=== PATIENT | male | born 1975 | race Caucasian/White ===

== ENCOUNTER 2020-09-13 08:39 | Emergency (ER) | payer OTHER, SELFPAY ==
--- NOTE | ~2020-09-13 | US_ITS ---
US venous doppler UE LT DATE: 09/13/2020 10:03 INDICATION: Left upper extremity swelling TECHNIQUE: Real-time and color flow imaging and Doppler analysis of the veins of the left upper extre mity COMPARISON: None FINDINGS: There is thrombus and lack of compression involving the left basilic vein. Flow is demonstrated in the left internal jugular, subclavian, axillary, brachial, cephalic, radial a nd ulnar veins. IMPRESSION: Intraluminal thrombus within left basilic vein Reviewed, dictated and finalized at [facility]. Reviewed, dictated and finalized at [facility]. [employer]
[2020-09-13 08:48] VITALS: BP 162/99; PULSE 78; RESP 16; TEMP 36.9; O2SAT 98
--- NOTE | 2020-09-13 09:33 | ED.GENADULT ---
HPI - General Adult General Chief complaint: Unspecified Stated complaint: site of old IV possible infection Time Seen by Provider: 09/13/20 09:32 History of Present Illness HPI narrative: Patient is a 45-year-old male who presents ER with left forearm pain. Patient had an IV placed last week since then has developed discomfort to left forearm that then started to radiate up past his elbow. He has some streaking and firmness to the area. No chest pain or shortness of breath. Concerned about blood clots. Pain is worse with movement of the arm. Patient had his left iliac vein stented for chronic swelling in his left leg. Related Data Home Medications Medication Instructions Recorded Confirmed clopidogrel [Plavix] 75 mg PO DAILY 09/13/20 fluoxetine 10 mg PO BID 09/13/20 Allergies Allergy/AdvReac Type Severity Reaction Status Date / Time No Known Allergies Allergy Verified 09/13/20 09:23 Review of Systems Constitutional: Constitutional: Denies chills, Denies fever(s) and Denies weakness Cardiovascular: Cardiovascular: Denies chest pain and Denies chest pain at rest Respiratory: Respiratory: Denies cough and Denies dyspnea Musculoskeletal: Comments: left forearm pain/swelling Integumentary/Breasts: Skin/Breast: Reports erythema PMFSH Past Medical History Medical History (Updated 09/13/20 @ 15:30 by Amauri Charlton MD) DVT (deep venous thrombosis) Surgical History Surgical History (Updated 09/13/20 @ 15:24 by Amauri Charlton MD) Iliac vein stenosis, 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 HEAD: Normocephalic, atraumatic. CHEST: Clear to auscultation. No respiratory distress. HEART: Regular rate and rhythm. Normal peripheral pulses. EXTREMITIES: Normal range of motion. Mild edema left forearm where there is some tenderness and superficial redness tracking around the forearm to the medial epicondyle. NEURO: Alert and oriented x3. PSYCH: Normal mood and affect. Course Reevaluation(s) Reevaluation #1: Likely thrombophlebitis. Ultrasound pending. Date: 09/13/20 Time: 10:46 Reevaluation #2: Multiple attempts to contact patient's vascular surgeon that were unsuccessful. Discussed with patient's PCPs office x2. Recommendations placed patient on Eliquis 2.5 mg twice daily and have him follow-up in clinic. Date: 09/13/20 Time: 15:25 Vital Signs Vital signs: Vital Signs Temperature 98.4 F 09/13/20 08:48 Pulse Rate 78 09/13/20 08:48 Respiratory Rate 16 09/13/20 08:48 Blood Pressure 162/99 H 09/13/20 08:48 Pulse Oximetry 98 09/13/20 08:48 Temperature 98.4 F 09/13/20 08:48 Pulse Rate 75 09/13/20 13:23 Respiratory Rate 18 09/13/20 13:23 Blood Pressure 149/105 H 09/13/20 13:23 Pulse Oximetry 99 09/13/20 13:23 Medical Decision Making Vital Signs Vital Signs: Vital Signs Temperature 98.4 F 09/13/20 08:48 Pulse Rate 78 09/13/20 08:48 Respiratory Rate 16 09/13/20 08:48 Blood Pressure 162/99 H 09/13/20 08:48 Pulse Oximetry 98 09/13/20 08:48 Temperature 98.4 F 09/13/20 08:48 Pulse Rate 75 09/13/20 13:23 Respiratory Rate 18 09/13/20 13:23 Blood Pressure 149/105 H 09/13/20 13:23 Pulse Oximetry 99 09/13/20 13:23 Discharge Plan Discharge Clinical Impression: Acute basilic vein thrombosis Patient Disposition: Home, Self-Care Condition: Stable Instructions: Superficial Thrombophlebitis (ED) Additional Instructions: Your vascular surgeon was unable to be contacted while in the ER. We did discuss the case with your primary care physician's office. They recommend starting you on Eliquis 2.5 mg twice a day. You should call and schedule close follow-up for further
[2020-09-13] MEDS: KETOROLAC (*BKC) 60 MG/2 ML VIAL IM (10:20)
[2020-09-13 11:11] VITALS: BP 147/100; PULSE 73; RESP 16; O2SAT 99
[2020-09-13 13:23] VITALS: BP 149/105; PULSE 75; RESP 18; O2SAT 99
[2020-09-13] MEDS: HYDROcodone/acetaminophen (*CRX) 5-325 MG TABLET 1 TAB PO (15:23)
[2020-09-13 15:31] VITALS: BP 158/106; PULSE 59; RESP 16; O2SAT 100
[2020-09-13 15:56] VITALS: BP 158/104; PULSE 68; RESP 16; O2SAT 96
== END 2020-09-13 16:08 | disposition home or self-care (01) ==
PROVIDERS: Emergency Provider Emergency Medicine; PCP Internal Medicine
DX: I82.612 Acute embolism and thrombosis of superficial veins of left upper extremity (principal); Z86.718 Personal history of other venous thrombosis and embolism; Z79.02 Long term (current) use of antithrombotics/antiplatelets
CPT/HCPCS: 93971; 96372; 99284; A9270; J1885

== ENCOUNTER 2021-02-21 12:20 | Emergency (ER) | payer OTHER, SELFPAY ==
[2021-02-21] VITALS (41 sets, daily range): BP systolic 128–160; BP diastolic 89–105; PULSE 65–143; RESP 12–20; TEMP 36.4; O2SAT 96–100
--- NOTE | 2021-02-21 14:14 | ECG_ITS ---
Measurements Intervals [place] Rate: 69 P: 23 SD: 160 QRS: 41 QRSD: 132 T: 10 QT: 382 QTc: 409 Interpretive Statements SINUS RHYTHM INTRAVENTRICULAR CONDUCTION DELAY CONSIDER INFERIOR INFARCT, AGE INDETERMINATE ABNORMAL ECG Electronically Signed On 02-22-2021 7:45:26 CDT by Vinicius Weller D.O.
[2021-02-21 14:55] LABS: Basophils Percent Auto 0.5 % (0.2-1.2); Eosinophils Absolute Auto 0.1 K/mm3 (0-0.3); Eosinophils Percent Auto 1.1 % (0-4.4); Hemoglobin 16.3 g/dL (14.0-18.0); Immature Granulocyte Absolute 0.01 K/mm3 (0.00-0.031); Immature Granulocyte Percent A 0.2 % (0-0.5); Lymphocytes Absolute Auto 1.76 K/mm3 (0.9-3.2); Lymphocytes Percent Auto 26.7 % (18.3-44.2); Mean Corpuscular Hemoglobin 33.4 pg (26-34); Mean Corpuscular Volume 98.4 fl (80-100); Mean Platelet Volume 10.2 fl (7.4-10.4); Monocytes Absolute Auto 0.6 K/mm3 (0.1-0.6); Monocytes Percent Auto 9.4 % (2.6-8.5); Neutrophils Absolute Auto 4.1 K/mm3 (1.3-6.7); Neutrophils Percent Auto 62.1 % (45.5-73.1); Platelet Count Result 176 k/mm3 (150-375); Red Blood Count 4.88 M/mm3 (4.6-6.20); Red Cell Distribution Width 12.1 % (11.5-14.5); White Blood Count 6.6 K/mm3 (4.5-10.0)
--- NOTE | 2021-02-21 14:58 | ED.GENADULT ---
HPI - General Adult General Chief complaint: Unspecified Stated complaint: Low B/P Time Seen by Provider: 02/21/21 13:35 Source: patient, family, RN notes reviewed and old records reviewed Mode of arrival: ambulatory Limitations: no limitations History of Present Illness HPI narrative: Pain patient is a 45-year-old male who presents to emergency department for evaluation of feeling fatigued and near syncopal today patient notes for the last week and a half he has had increased fatigue. Patient denies any pain or similar occurrence in the past. Patient's only medication change in the recent past has been Abilify. On arrival to emergency department patient is resting comfortably and has no symptoms. Patient has not followed up with his primary care for this or brought to his primary care's attention. Patient denies any recent illness complaints nausea vomiting diarrhea rectal bleeding or melena. 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 HEAD: Normocephalic, atraumatic. EYES: PERRLA and EOMI. ENT: Nares clear, no rhinorrhea or epistaxis. Mucous membranes moist. CHEST: Clear to auscultation. No respiratory distress. No wheezes rales or rhonchi HEART: Regular rate and rhythm. No murmur heard. Normal peripheral pulses. ABDOMEN: Soft, nontender, nondistended EXTREMITIES: Normal range of motion. No edema. SKIN: Warm, dry, no rash. NEURO: No focal deficits. Alert and oriented x3. Cranial nerves II through XII grossly intact. Normal speech and gait PSYCH: Normal mood and affect. Course Course Emergency Course: Patient in the room in no distress aware of case findings treatment plan and diagnosis agreeing to follow-up as instructed or to return if symptoms worsen or concerns patient is afebrile nontoxic-appearing no distress ABCs and vital signs intact and stable patient aware of case findings and treatment plan and agrees to follow with primary care feels much better at this time and notes that he feels comfortable to go home and will return if symptoms worsen Vital Signs Vital signs: Vital Signs Temperature 97.6 F 02/21/21 12:44 Pulse Rate 77 02/21/21 12:44 Respiratory Rate 18 02/21/21 12:44 Blood Pressure 160/102 H 02/21/21 12:44 Pulse Oximetry 96 02/21/21 12:44 Temperature 97.6 F 02/21/21 12:44 Pulse Rate 73 02/21/21 16:01 Respiratory Rate 20 02/21/21 16:01 Blood Pressure 142/93 H 02/21/21 16:01 Pulse Oximetry 100 02/21/21 16:01 Medical Decision Making MDM Narrative Medical decision making narrative: Patient evaluated for near syncope in the emergency department no high risk changes in the EKG blood work felt appropriate for outpatient reevaluation agreeing to follow-up as directed. Patient was hydrated and is asymptomatic at this time and agrees to follow with primary care and is felt appropriate for outpatient reevaluation Vital Signs Vital Signs: Vital Signs Temperature 97.6 F 02/21/21 12:44 Pulse Rate 77 02/21/21 12:44 Respi
[2021-02-21 15:07] LABS: Alanine Aminotransferase 61 U/L (4-50); Albumin Level 4.5 g/dL (3.5-5.1); Alkaline Phosphatase 80 U/L (38-126); Anion Gap 4 mmol/L (8-16); Aspartate Amino Transferase 46 U/L (17-59); Bilirubin,Total 1.6 mg/dL (0.2-1.3); Blood Urea Nitrogen 7 mg/dL (9-20); Calcium 9.7 mg/dL (8.4-10.2); Carbon Dioxide 32 mmol/L (22-30); Chloride 102 mmol/L (98-107); Estimated CRCL calculation 102 ml/min; Estimated Glomerular Filt Rate > 60; Glucose 95 mg/dL (75-110); Potassium 4.3 mmol/L (3.4-5.0); Sodium 138 mmol/L (137-145)
--- NOTE | 2021-02-21 15:46 | PC.NURSE ---
Called [facility], added on PT INR PTT, D Dimer, Trop I [phone]
[2021-02-21] MEDS: SODIUM CHLORIDE 0.9% IV 1,000 ML 999 ML IV CONT (15:49)
[2021-02-21 16:21] LABS: Add Urine Microscopic? YES; Appearance Urine Clear (Clear); Bacteria Urine Trace /hpf; Bilirubin Urine Negative (Negative); Blood Urine Negative (Negative); Color Urine Yellow (Yellow); Glucose Urine UA Negative (Negative); Ketones Urine Negative (Negative); Leukocyte Esterase Ur Negative LEU/UL (Negative); Mucus Urine Rare /lpf; Nitrate Urine Negative (Negative); Protein Urine Negative (Negative); Specific Grav Ur 1.013 (1.001-1.035); WBC Urine 0-3 /hpf
--- NOTE | 2021-02-21 16:30 | PC.NURSE ---
lab again contacted about add ons. states cant find and they will look into it.
[2021-02-21 16:51] LABS: INR 1.1; Prothrombin Time 14.6 Seconds (11.1-14.7)
[2021-02-21 16:52] LABS: Partial Thromboplastin Time 29.2 SECONDS (22.3-36.8)
[2021-02-21 16:55] LABS: Troponin I < 0.012 ng/mL (0.000-0.034)
[2021-02-21 17:07] LABS: D Dimer 0.27 ug/mL (<0.48)
== END 2021-02-21 18:00 | disposition home or self-care (01) ==
PROVIDERS: Emergency Medicine Emergency Medical Services; Emergency Provider Emergency Medicine; PCP Internal Medicine
DX: R55 Syncope and collapse (principal); Z86.718 Personal history of other venous thrombosis and embolism; I45.9 Conduction disorder, unspecified; R94.31 Abnormal electrocardiogram [ECG] [EKG]
CPT/HCPCS: 36415; 80053; 81001; 84484; 85025; 85380; 85610; 85730; 93005; 96360; 99284; J7030

== ENCOUNTER 2023-03-09 14:46 | Emergency (ER) | payer OTHER, SELFPAY ==
--- NOTE | ~2023-03-09 | US_ITS ---
EXAMINATION: US venous doppler UE DATE: 03/09/2023 16:24 INDICATION: History of DVT TECHNIQUE: Hoskins scale images with and without compression and Doppler images of the left upper extrem ity veins were obtained. COMPARISON: Ultrasound dated 09/13/2020. FINDINGS: The left internal jugular vein, subclavian vein, axillary vein, brachial veins, basilic vein, cephali c vein, radial vein, and ulnar vein are patent. IMPRESSION: 1. Patent left upper extremity veins. No evidence of deep venous thrombosis. Reviewed, dictated and finalized at [facility].
--- NOTE | ~2023-03-09 | XR_ITS ---
EXAMINATION: XR chest 2V Exam Date/Time: 03/09/2023 15:11 CDT HISTORY: L.FOREARM PAIN GOING UP TO BICEP. Comparison: None. RESULT: Lines, tubes, and devices: Cholecystectomy clips. Lungs and pleura: Slightly low lung volumes with crowding and streaky bibasilar atelectasis/scar, ot herwise clear. Cardiomediastinal silhouette: Stable. Other: No acute osseous or upper abdominal finding. IMPRESSION: No acute cardiopulmonary process. Reviewed, dictated and finalized at [facility].
[2023-03-09 14:49] VITALS: BP 174/108; PULSE 89; RESP 18; TEMP 36.9; O2SAT 98
--- NOTE | 2023-03-09 14:52 | ECG_ITS ---
Measurements Intervals [place] Rate: 81 P: 30 IN: 154 QRS: 25 QRSD: 128 T: 46 QT: 362 QTc: 421 Interpretive Statements SINUS RHYTHM NORMAL ECG COMPARED TO ECG 02/21/2021 14:31:31 NO SIGNIFICANT CHANGES Electronically Signed On 03-09-2023 15:24:51 CDT by Vinicius Weller D.O.
[2023-03-09 15:08] LABS: Basophils Absolute Auto 0.1 K/mm3 (0.0-0.1); Basophils Percent Auto 0.7 % (0.2-1.2); Eosinophils Absolute Auto 0.5 K/mm3 (0-0.3); Eosinophils Percent Auto 6.3 % (0-4.4); Hematocrit 49.9 % (42.0-52.0); Hemoglobin 17.5 g/dL (14.0-18.0); Immature Granulocyte Absolute 0.03 K/mm3 (0.00-0.031); Immature Granulocyte Percent A 0.4 % (0-0.5); Lymphocytes Absolute Auto 1.84 K/mm3 (0.9-3.2); Lymphocytes Percent Auto 24.6 % (18.3-44.2); Mean Corpuscular HGB Conc 35.1 g/dl (32-36); Mean Corpuscular Hemoglobin 33.8 pg (26-34); Mean Corpuscular Volume 96.5 fl (80-100); Mean Platelet Volume 9.5 fl (7.4-10.4); Monocytes Absolute Auto 0.8 K/mm3 (0.1-0.6); Monocytes Percent Auto 11.2 % (2.6-8.5); Neutrophils Absolute Auto 4.3 K/mm3 (1.3-6.7); Neutrophils Percent Auto 56.8 % (45.5-73.1); Platelet Count Result 168 k/mm3 (150-375); Red Blood Count 5.17 M/mm3 (4.6-6.20); Red Cell Distribution Width 13.4 % (11.5-14.5); White Blood Count 7.5 K/mm3 (4.5-10.0)
--- NOTE | 2023-03-09 15:09 | PC.NURSE ---
Pt to XRAY via w/c at this time.
[2023-03-09 15:21] LABS: Prothrombin Time 13.9 Seconds (11.1-14.7)
[2023-03-09 15:22] LABS: Partial Thromboplastin Time 31.4 SECONDS (22.3-36.8)
--- NOTE | 2023-03-09 15:31 | ED.EXTPRO ---
HPI - Extremity Problem General Chief complaint: Extremity Problem,Nontraumatic Stated complaint: left arm pain Time Seen by Provider: 03/09/23 15:11 History of Present Illness HPI Narrative: Patient is 47 years old white male drove himself to the emergency room because of dull aching pain and swelling at the left forearm started 3 days ago and gradually moved to his biceps. Patient reports that the skin of the forearm was hot and veins WER distended at that time which resolved yesterday history of Leiden 5 deficiency, currently on Eliquis, history of iliac vein stent 2019 because of blood clots in the lower extremities. Patient reports a history of similar symptoms of the left forearm November 2022 required nerve conduction test. Subsequently he had cortisone shot at the elbow area at that time with complete improvement. Patient denies any recent trauma, fever, chills, nausea, vomiting, chest pain or shortness of breath or cold hand Related Data Home Medications Medication Instructions Recorded Confirmed clopidogrel 75 mg tablet (Plavix) 75 mg PO DAILY 09/13/20 fluoxetine 10 mg tablet 10 mg PO BID 09/13/20 Allergies Allergy/AdvReac Type Severity Reaction Status Date / Time No Known Allergies Allergy Verified 03/09/23 15:10 Review of Systems Review of Systems: All systems reviewed & are unremarkable except as noted in HPI and below PMFSH Past Medical History Medical History DVT (deep venous thrombosis) Surgical History Surgical History Iliac vein stenosis, 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 Musculoskeletal: Left upper extremity showed no swelling, no distended veins, no erythema, no rash, palpable strong radial pulse, mild tenderness of the forearm with squeeze and left biceps. No mass, no weakness or sensory abnormality of the left upper extremity Neurologic: Alert and oriented ?3, [employer] is normal as tested, no gross motor deficit Course Reevaluation(s) Reevaluation #1: No new changes Date: 03/09/23 Time: 16:44 Vital Signs Vital signs: Vital Signs Temperature 36.9 C 03/09/23 14:49 Pulse Rate 89 03/09/23 14:49 Respiratory Rate 18 03/09/23 14:49 Blood Pressure 174/108 H 03/09/23 14:49 Pulse Oximetry 98 03/09/23 14:49 Oxygen Delivery Room Air 03/09/23 14:49 Temperature 36.9 C 03/09/23 14:49 Pulse Rate 89 03/09/23 14:49 Respiratory Rate 18 03/09/23 14:49 Blood Pressure 174/108 H 03/09/23 14:49 Pulse Oximetry 98 03/09/23 14:49 Oxygen Delivery Room Air 03/09/23 14:49 MDM - Extremity (Nontraumatic) MDM Narrative Medical decision making narrative: Patient presents with pain of the left forearm similar to his previous history which required cortisone injection at the left forearm at that time, and known diagnosis. Physical examination showed no specific abnormalities. Except slight tenderness of the forearm and left biceps. Differential diagnosis include deep vein t
[2023-03-09 16:44] VITALS: BP 147/105; PULSE 78; RESP 17; O2SAT 98
== END 2023-03-09 17:08 | disposition home or self-care (01) ==
PROVIDERS: Emergency Provider Emergency Medicine; PCP Internal Medicine
DX: M79.632 Pain in left forearm (principal); M79.622 Pain in left upper arm; Z86.718 Personal history of other venous thrombosis and embolism; Z79.02 Long term (current) use of antithrombotics/antiplatelets; Z79.01 Long term (current) use of anticoagulants
CPT/HCPCS: 36415; 71046; 85025; 85610; 85730; 93005; 93971; 99284